=== PATIENT | male | born 1955 | race Caucasian/White ===

== ENCOUNTER 2018-06-30 12:00 | Inpatient (IN) | payer OTHER ==
[~2018-06-30] VITALS: Ht 172.7 cm; Wt 79.0 kg
[~2018-06-30 12:00] MED LIST: AMLO5TAB13 PO; ASPI81TA27 PO; ATOR20TA50 PO; CLOP75TA28 PO; IODIXANOL 320MG/ML 100ML BTL IV ONE; LIDOCAINE 2% (LOCAL ANESTH.) PF 5ml SDV ONE
[2018-06-30] MEDS ORDERED: IODIXANOL 320MG/ML 100ML BTL IV ONE ×2 (12:28→14:17)
[2018-06-30] MEDS ORDERED: MIDAZOLAM HCL 1MG/1ML-2 ML VIAL ONE ×2 (13:08→14:23)
[2018-06-30] MEDS ORDERED: fentaNYL CITRATE 100 MCG/2 ML VL ONE ×2 (13:08→14:23)
[2018-06-30] MEDS ORDERED: SODIUM CHL 0.9% 50 ML ONE ×2 (13:08→14:17)
[2018-06-30] MEDS ORDERED: ANGIOMAX 250 MG VIAL IV ONE ×2 (13:08→14:17)
[2018-06-30] MEDS ORDERED: VERAPAMIL 2.5MG/ML INJ 2ML VIAL IV ONE ×2 (13:23→14:40)
[2018-06-30] MEDS ORDERED: NITROGLYCERIN 5MG/ML 10ML VIAL IV ONE (13:23)
[2018-06-30] MEDS ORDERED: LIDOCAINE 2%HCL (LOCAL ANESTH.) INJ 10ml MDV ONE (14:10)
[2018-06-30] MEDS ORDERED: NITROGLYCERIN 0.4 MG SL TAB SL PRN (16:00)
[2018-06-30] MEDS ORDERED: MORPHINE SULF INJ 2 MG/ML SYRINGE 1ML IV PRN (16:00)
[2018-06-30] MEDS ORDERED: ONDANSETRON HCL 4 MG/2 ML VIAL IV PRN (16:00)
[2018-06-30] MEDS ORDERED: ACETAMINOPHEN 500 MG TAB PO PRN (16:00)
[2018-06-30] MEDS ORDERED: HYDROcodone-ACET 5/325MG TAB PO PRN (16:00)
[2018-06-30 16:23] LABS: Basophils # (auto) 0 uL; Basophils % (auto) 0.6 % (0.0-2.0); Eosinophils # (auto) 0.1 uL; Eosinophils % (auto) 0.8 % (0.0-7.0); Hematocrit 47.3 % (41.0-53.0); Hemoglobin 16.5 g/dL (13.5-17.5); Lymphocytes # (auto) 0.7 uL; Lymphocytes % (auto) 9.4 % (10.0-50.0); Mean Corpuscular Hgb Conc. 34.9 g/dL (32.0-36.0); Mean Corpuscular Volume 97.5 fL (80.0-100.0); Monocytes # (auto) 0.7 uL; Monocytes % (auto) 10.2 % (0.0-12.0); Neutrophils # (auto) 5.8 uL; Nucleated Red Blood Cells % 0.1 %; Platelet Count (auto) 211 10^3/uL (140-450); Red Blood Cells 4.85 10^6/uL (4.5-5.90); Red Cell Distribution Width 13.6 % (11.8-14.3); White Blood Cell 7.3 10^3/uL (4.4-10.8)
[2018-06-30 17:30] VITALS: BP 122/69
[2018-06-30 18:36] LABS: Albumin 3.5 g/dL (3.4-5.0); Calcium 8.4 mg/dL (8.5-10.1); Potassium 3.9 mmol/L (3.5-5.1)
[2018-06-30 18:38] LABS: BUN/Creatinine Ratio 15.4
[2018-06-30 18:40] LABS: Bilirubin, Total 1.1 mg/dL (0.2-1.0); Total Protein 7.2 g/dL (6.4-8.2)
[2018-06-30 20:00] VITALS: BP 156/64
[2018-06-30] MEDS: SODIUM CHLOR 0.9% PF (SALINE LOCK) 10ML VIAL/SYR IV SCH (21:54)
[2018-06-30 22:00] VITALS: BP 156/64
[2018-06-30] MEDS ORDERED: ATORVASTATIN 20 MG TAB PO SCH (22:00)
[2018-07-01 05:24] VITALS: BP 55/74
[2018-07-01] MEDS: SODIUM CHLOR 0.9% PF (SALINE LOCK) 10ML VIAL/SYR IV SCH (06:45)
[2018-07-01 06:48] LABS: Basophils # (auto) 0 uL; Eosinophils # (auto) 0.1 uL; Hemoglobin 17.4 g/dL (13.5-17.5); Lymphocytes # (auto) 0.8 uL; Monocytes # (auto) 0.9 uL; Neutrophils # (auto) 6.1 uL; White Blood Cell 7.9 10^3/uL (4.4-10.8)
[2018-07-01 06:51] LABS: Basophils % (auto) 0.3 % (0.0-2.0); Eosinophils % (auto) 1.2 % (0.0-7.0); Hematocrit 49.6 % (41.0-53.0); Lymphocytes % (auto) 10.4 % (10.0-50.0); Mean Corpuscular Hemoglobin 34.2 pg (28.0-32.0); Mean Corpuscular Volume 97.7 fL (80.0-100.0); Neutrophils % (auto) 77.1 % (37.0-80.0); Platelet Count (auto) 222 10^3/uL (140-450); Red Blood Cells 5.07 10^6/uL (4.5-5.90); Red Cell Distribution Width 13.5 % (11.8-14.3)
[2018-07-01 07:32] VITALS: BP 113/77
[2018-07-01 09:00] VITALS: BP 143/72
[2018-07-01] MEDS ORDERED: ASPirin-EC 81 mg tab PO SCH (10:00)
[2018-07-01] MEDS ORDERED: CLOPIDOGREL BISULFATE 75 MG TAB PO SCH (10:00)
[2018-07-01] MEDS ORDERED: amLODIPine BESYLATE 5 MG TAB PO SCH (10:00)
== END 2018-07-01 10:00 | disposition home or self-care (01) | DRG 301 ==
LOC: CATH 12:00 → WEST WING 12:01
PROVIDERS: ADMIT Internal Medicine; ATTEND Internal Medicine
PROC: B41G1ZZ Fluoroscopy of Left Lower Extremity Arteries using Low Osmolar Contrast (ICD-10-PCS; principal; 2018-06-30)
PROC: B41F1ZZ Fluoroscopy of Right Lower Extremity Arteries using Low Osmolar Contrast (ICD-10-PCS; 2018-06-30)
PROC: 04H Lower Arteries, Insertion (ICD-10-PCS; 2018-06-30)
DX: I70.219 Atherosclerosis of native arteries of extremities with intermittent claudication, unspecified extremity (principal); I25.10 Atherosclerotic heart disease of native coronary artery without angina pectoris; I10 Essential (primary) hypertension; F17.210 Nicotine dependence, cigarettes, uncomplicated; Z95.5 Presence of coronary angioplasty implant and graft; Z82.49 Family history of ischemic heart disease and other diseases of the circulatory system; Z79.82 Long term (current) use of aspirin; Z79.899 Other long term (current) drug therapy
CPT/HCPCS: 36415; 75716; 76942; 80053; 85025; 86850; 86900; 86901; 93005; 99152; 99153; A6257; J2001; J2250; J3490; Q9967

== ENCOUNTER 2018-08-16 06:54 | Day surgery (SDC) | payer OTHER ==
[~2018-08-16] VITALS: Ht 172.7 cm; Wt 79.4 kg
[~2018-08-16 06:54] MED LIST changes: -IODIXANOL 320MG/ML 100ML BTL IV ONE; -LIDOCAINE 2% (LOCAL ANESTH.) PF 5ml SDV ONE
[2018-08-16] MEDS ORDERED: IODIXANOL 320MG/ML 100ML BTL IV ONE (07:07)
[2018-08-16] MEDS ORDERED: LIDOCAINE 2%HCL (LOCAL ANESTH.) INJ 20ML MDV ONE (07:08)
[2018-08-16] MEDS ORDERED: ANGIOMAX 250 MG VIAL IV ONE (07:42)
[2018-08-16] MEDS ORDERED: fentaNYL CITRATE 100 MCG/2 ML VL ONE (07:43)
[2018-08-16] MEDS ORDERED: SODIUM CHL 0.9% 100 ML ONE (07:43)
[2018-08-16] MEDS ORDERED: MIDAZOLAM HCL 1MG/1ML-2 ML VIAL ONE (07:43)
[2018-08-16] MEDS ORDERED: VERAPAMIL 2.5MG/ML INJ 2ML VIAL IV ONE (07:52)
[2018-08-16] MEDS ORDERED: HYDROcodone-ACET 5/325MG TAB PO PRN (09:30)
[2018-08-16] MEDS ORDERED: ACETAMINOPHEN 500 MG TAB PO PRN (09:30)
== END 2018-08-16 13:25 | disposition home or self-care (01) ==
LOC: CATH 06:54
PROVIDERS: ATTEND Internal Medicine
DX: I70.203 Unspecified atherosclerosis of native arteries of extremities, bilateral legs (principal); I25.10 Atherosclerotic heart disease of native coronary artery without angina pectoris; I10 Essential (primary) hypertension; E78.00 Pure hypercholesterolemia, unspecified; F17.210 Nicotine dependence, cigarettes, uncomplicated; E78.5 Hyperlipidemia, unspecified; F10.99 Alcohol use, unspecified with unspecified alcohol-induced disorder; Z82.3 Family history of stroke; Z82.61 Family history of arthritis; Z98.62 Peripheral vascular angioplasty status; Z79.899 Other long term (current) drug therapy; Z79.82 Long term (current) use of aspirin; Z82.49 Family history of ischemic heart disease and other diseases of the circulatory system
CPT/HCPCS: 37224; 75716; A6257; C1725; C1760; C1769; C1887; C1894; J0583; J1644; J2250; J3010; J7030; Q9967; 75710; 99152; 99153